=== PATIENT | female | born 1980 | race Caucasian/White ===

== ENCOUNTER 2017-04-05 13:00 | Emergency (ER) | payer SELFPAY ==
[~2017-04-05] VITALS: Ht 167.6 cm; Wt 57.8 kg
[2017-04-05 13:31] VITALS: BP 120/79
[2017-04-05] MEDS ORDERED: LIDOCAINE 1%, 20ML INFIL ONE (14:00)
[2017-04-05] MEDS ORDERED: BUPIVACAINE 0.25% ONE (14:32)
[2017-04-05] MEDS ORDERED: LIDOCAINE 1%, 20ML ONE (14:32)
[2017-04-05] MEDS ORDERED: MICROFIBRILLAR COLLAGEN 1 GM TP ONE ×2 (14:35→16:00)
[2017-04-05] MEDS ORDERED: BUPIVACAINE/PF 0.25% INFIL ONE (15:00)
== END 2017-04-05 15:42 | disposition home or self-care (01) ==
LOC: ED 15:36
DX: S61.210A Laceration without foreign body of right index finger without damage to nail, initial encounter (principal); W26.0XXA Contact with knife, initial encounter; Y93.89 Activity, other specified; Y92.009 Unspecified place in unspecified non-institutional (private) residence as the place of occurrence of the external cause; Y99.8 Other external cause status
CPT/HCPCS: 73130; 99284; J3490